=== PATIENT | female | born 1985 | race Caucasian/White ===

== ENCOUNTER → 2017-07-10 | Outpatient (CLI) | payer MEDICAID | LOC: FIMAGING 10:25 | DX: N64.59 Other signs and symptoms in breast (principal) | CPT/HCPCS: G0204 ==

== ENCOUNTER → 2018-06-28 | Outpatient (CLI) | payer MEDICAID | LOC: FCPNEURO 16:58 | PROVIDERS: ATTEND Psychiatry & Neurology Sleep Medicine | DX: R53.83 Other fatigue (principal); R06.83 Snoring; G47.00 Insomnia, unspecified ==